=== PATIENT | female | born 1940 | race Caucasian/White ===

== ENCOUNTER → 2016-08-27 | Outpatient (CLI) | payer BC, OTHER ==
--- NOTE | 2016-08-27 16:25 | DX ---
DEXA Bone Mineral Densitometry Clinical Indications: DEXA Bone Mineral Densitometry Clinical Indications: Postmenopausal, post hysterectomy and oophorectomy, back pain, loss of height, HRT x25 years, Synthroid x20 years Comparison: July 08, 2014 Technique: Bone Mineral Densitometry (BMD) by Dual Energy X-Ray Absorptiometry (DEXA) was performed utilizing the [employer] scanner. The lumbar spine was evaluated in the AP projection. The bilat eral hips and forearm were evaluated in the AP projection. Vertebral fracture assessment was also pe rformed. AP Lumbar Spine: The L3 only vertebral body was evaluated. Other vertebral bodies are sclerotic and /or associated with compression abnormality. BMD: 1.195 gm/cm2 T-score: -0.2 SD Z-score: 2.1 SD No significant change in L3. AP Left Hip: Neck BMD: 0.792 gm/cm2 T-score: -1.8 SD Z-score: 0.6 SD Total BMD is significantly decreased by 6.6% AP Right Hip: Total BMD: 0.779 gm/cm2 T-score: -1.8 SD Z-score: 0.4 SD Significantly decreased by 8.4% AP Left Forearm, 08/13: BMD: 0.752 gm/cm2 T-score: -1.4 SD Z-score: 1.0 SD No significant change. Vertebral Fracture Assessment: There is a stable compression deformity of T12. No new compressions h ave developed.. 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 Conclusion: Considering the lowest measured site, the patient has low bone density which has signifi cantly decreased. The ten year FRAX risk for any major osteoporotic fracture is 18.7% and for a hip fracture is 4.5%. S cameron the risk for hip fracture is greater than 3%, the National Osteoporosis [employer] guidelines vargas ggest that this patient may be a candidate for additional pharmacologic intervention The most common iatrogenic cause of bone loss is overtreatment for thyroid disorders. Consider check ing the patient's TSH (thyroid stimulating hormone) level to ensure that it is normal. To prevent osteoporosis and to promote the patient's bone density, the following recommendations shou ld be considered: 1. Pursue a regular regimen of weightbearing and muscle strengthening exercises in order to reduce t he risk of falls and fractures (as tolerated by the patient's general medical condition). 2. Ensure that daily dietary calcium uptake is maximized. 3. Consider checking the serum vitamin D level. Ensure that intake of vitamin D is 800 IU per day (f or ages 71 and older). 4. Consider follow-up DEXA scan in one year to assess the efficacy of additional pharmacological int ervention or in 2 years to reassess the rate of bone loss in this patient, if she follows a more cons ervative regimen.
== END ==
LOC: FIMAGING 08:26
PROVIDERS: ATTEND Family Medicine
DX: Z13.820 Encounter for screening for osteoporosis (principal); M85.80 Other specified disorders of bone density and structure, unspecified site; Z78.0 Asymptomatic menopausal state; E03.9 Hypothyroidism, unspecified; R29.890 Loss of height

== ENCOUNTER → 2017-01-30 | Outpatient (CLI) | payer BC | LOC: FIMAGING 08:16 | PROVIDERS: ATTEND Family Medicine | DX: Z12.31 Encounter for screening mammogram for malignant neoplasm of breast (principal) | CPT/HCPCS: G0202 ==

== ENCOUNTER → 2018-02-02 | Outpatient (CLI) | payer BC | LOC: FIMAGING 09:34 | PROVIDERS: ATTEND Family Medicine | DX: Z12.31 Encounter for screening mammogram for malignant neoplasm of breast (principal) ==

== ENCOUNTER → 2018-07-20 | Outpatient (CLI) | payer BC | LOC: BMCIMAGING 07:20 | PROVIDERS: ATTEND Orthopaedic Surgery | DX: M17.12 Unilateral primary osteoarthritis, left knee (principal); M21.062 Valgus deformity, not elsewhere classified, left knee ==

== ENCOUNTER → 2018-09-14 | Outpatient (CLI) | payer BC | LOC: FIMAGING 09:31 | PROVIDERS: ATTEND Family Medicine | DX: Z13.820 Encounter for screening for osteoporosis (principal); M85.89 Other specified disorders of bone density and structure, multiple sites; Z78.0 Asymptomatic menopausal state ==

== ENCOUNTER → 2019-02-03 | Outpatient (CLI) | payer BC | LOC: FIMAGING 07:36 ==